=== PATIENT | male | born 1955 | race Two or more races ===

== ENCOUNTER 2019-07-26 12:06 | Emergency (ER) | payer BC ==
[~2019-07-26] VITALS: Ht 170.2 cm; Wt 72.6 kg
[~2019-07-26 12:06] MED LIST: NORCO 5-325 TA1 EACH PO
[2019-07-26] MEDS ORDERED: VITAMIN C500 M1 PO (13:00)
[2019-07-26] MEDS ORDERED: OFLOXACIN5 ML OTIC (17:54)
[2019-07-26] MEDS ORDERED: ONDANSETRON ODT8 MG PO (17:54)
[2019-07-26] MEDS ORDERED: NORCO 5-325 TA1 EACH PO (17:54)
--- NOTE | 2019-07-26 23:03 | EKG ---
[facility] [address] [facility] [place], [place] [address] Signed Normal sinus rhythm Normal ECG No previous ECGs available Confirmed by DESTINY DIAZ DO ([id number]) on 07/26/2019 11:03:07 PM Electronically Signed By: DESTINY DIAZ DO 07/26/19 2303 PATIENT NAME: BHARGAV SRINIVASAN Electrocardiogram DATE OF : 57 PHYSICIAN: DESTINY DIAZ DO REPORT #: [id number] REPORT IS CONFIDENTIAL AND NOT TO BE RELEASED WITHOUT AUTHORIZATION
== END 2019-07-26 18:15 | disposition home or self-care (01) ==
LOC: ED 12:06
DX: S03.01XA Dislocation of jaw, right side, initial encounter (principal); S01.81XA Laceration without foreign body of other part of head, initial encounter; F17.200 Nicotine dependence, unspecified, uncomplicated; W18.30XA Fall on same level, unspecified, initial encounter
CPT/HCPCS: 12013; 70450; 70486; 71045; 72125; 80053; 81001; 85025; 90471; 90715; 93005; 93010; 99284-25; G0480; J0295; J3010; J7030

== ENCOUNTER 2024-07-02 14:19 | Emergency (ER) | payer MEDICARE ==
[~2024-07-02] VITALS: Ht 170.2 cm; Wt 71.7 kg
[~2024-07-02 14:19] MED LIST changes: +OFLOXACIN5 ML OTIC; +ONDANSETRON ODT8 MG PO; +VITAMIN C500 M1 PO
[2024-07-02 19:33] LABS: BILIRUBIN, URINE NEGATIVE (negative); BLOOD/HGB, URINE NEGATIVE (Negative); KETONE, URINE NEGATIVE (Negative); LEUK ESTERASE, URINE NEGATIVE (negative); NITRITE, URINE NEGATIVE (negative)
[2024-07-02 19:33] LABS: BASOPHILS 0.8 % (0-2); EOSINOPHILS 1.9 % (0-6); HEMATOCRIT 34.5 % (35.0-50.0); HEMOGLOBIN 12.4 g/dL (12.0-18.0); LYMPHOCYTES 28.1 % (24-44); MCH 36.1 (27-36); MCHC 36.1 g/dl (30-36); MCV 100.1 fl (81-99); MONOCYTES 6.7 % (0-12); NEUTROPHILS 62.5 % (39-80); PLATELET COUNT 152 K/uL (140-440); RBC 3.44 M/ul (4.3-5.7); RDW 15.5 (10.5-15.0)
[2024-07-02] MEDS ORDERED: HYDROmorphone HCL 1 MG/ML SYR IV ONE (19:45)
[2024-07-02] MEDS ORDERED: LACTATED RINGER'S 1,000 ML IV ONE (19:45)
[2024-07-02] MEDS ORDERED: ondansetron HCL 4 MG/2 ML VIAL IV ONE (19:45)
[2024-07-02] MEDS ORDERED: FAMOTIDINE 20 MG/ 2 ML VIAL IV ONE (19:45)
[2024-07-02 19:49] LABS: AMPHETAMINES, URINE NEGATIVE (NEGATIVE); BARBITURATES, URINE NEGATIVE (NEGATIVE); BENZODIAZEPINE, URINE NEGATIVE (NEGATIVE); BUPRENORPHINE, URINE NEGATIVE (NEGATIVE); CANNABINOID, URINE NEGATIVE (NEGATIVE); COCAINE, URINE NEGATIVE (NEGATIVE); ECSTASY, URINE NEGATIVE (NEGATIVE); FENTANYL, URINE NEGATIVE (NEGATIVE); METHADONE, URINE NEGATIVE (NEGATIVE); OPIATES, URINE NEGATIVE (NEGATIVE); OXYCODONE, URINE NEGATIVE (NEGATIVE); PHENCYCLIDINE, URINE NEGATIVE (NEGATIVE)
[2024-07-02 19:57] LABS: ALBUMIN 3.6 g/dL (3.4-5.0); ANION GAP 12.6 (7-21); BILIRUBIN, TOTAL 0.6 mg/dL (0.2-1.0); BUN/CREATININE RATIO 18.18 (6.0-28.6); CALCIUM 9.2 mg/dL (8.5-10.1); CREATININE, SERUM 0.77 mg/dL (0.70-1.30); MAGNESIUM 1.9 mg/dL (1.8-2.4); POTASSIUM 3.6 mmol/L (3.5-5.1); PROTEIN, TOTAL 7.2 g/dL (6.4-8.2)
[2024-07-02 21:15] VITALS: BP 124/88
--- NOTE | 2024-07-02 21:37 | EKG ---
[facility] [address] [facility] [place] [address] Signed Normal sinus rhythm Normal ECG When compared with ECG of 05-SEP-2019 13:39, No significant change was found Confirmed by Shahriar Mabry MD () on 07/02/2024 9:37:26 PM Electronically Signed By: SHAHRIAR MABRY MD 07/02/24 2137 PATIENT NAME: BHARGAV SRINIVASAN Electrocardiogram DATE OF : 57 PHYSICIAN: SHAHRIAR MABRY MD REPORT #: [id number] REPORT IS CONFIDENTIAL AND NOT TO BE RELEASED WITHOUT AUTHORIZATION
== END 2024-07-02 21:15 | disposition home or self-care (01) ==
LOC: ED 14:19
PROVIDERS: Internal Medicine
DX: R55 Syncope and collapse (principal); S20.211A Contusion of right front wall of thorax, initial encounter; F17.200 Nicotine dependence, unspecified, uncomplicated; W18.30XA Fall on same level, unspecified, initial encounter
CPT/HCPCS: 36415; 70450; 71250; 80053; 80307; 81003; 83735; 84443; 84484; 85025; 93005; 93010; 96361; 96374; 96375; 99284-25; J1171; J2405; J7121